=== PATIENT | male | born 1995 | race Two or more races ===

== ENCOUNTER 2019-01-14 23:13 | Emergency (ER) | payer SELFPAY ==
--- NOTE | 2019-01-14 23:21 | ER Document Report ---
ED General - General Stated Complaint: POSSIBLE OVERDOSE Time Seen by Provider: 01/14/19 23:20 Primary Care Provider: LEAH SLATER DO [NO LOCAL MD] - Follow up in 3-5 days (primary care. ) Notes: Patient is a 23-year-old male with multi-substance abuse that presents to the emergency department for chief complaint of hypotension. Patient states that he was over at the crisis treatment center, and to try to get treatment for multi-substance abuse including heroin, cocaine and marijuana, he apparently used heroin little over an hour ago, through IV injection, and then went over to the crisis center, he states he thinks he is too high, and his blood pressure was lower, and he was rather drowsy over there so they transferred him over here to get medical clearance. At this time he is alert and oriented and answering questions appropriately. He thinks he just needs to wait, and things will get better. He denies having any pain, shortness of breath, nausea, vomiting or diarrhea recently. No recent fevers or illnesses. Past Medical History: Hepatitis C, multi-substance abuse disorder Past Surgical History: Denies surgical history Social History: Admits to heroin use, occasional cocaine use, marijuana use, and occasional benzodiazepine abuse. Family History: Reviewed and noncontributory for presenting illness Allergies: Reviewed, see documented allergy list. REVIEW OF SYSTEMS: Other than noted above, the 12 point review of systems was reviewed with the patient and were negative, all pertinent findings are included in the HPI. PHYSICAL EXAMINATION: Vital signs reviewed, nursing noted reviewed. GENERAL: Patient is somnolent, but answering questions appropriately and easily arousable to verbal stimuli HEAD: Atraumatic, normocephalic. EYES: Eyes appear normal, extraocular movements intact, sclera anicteric, co njunctiva are normal. ENT: nares patent, oropharynx clear without exudates. Moist mucous membranes. NECK: Normal range of motion, supple without lymphadenopathy LUNGS: Breath sounds clear to auscultation bilaterally and equal. No wheezes rales or rhonchi. HEART: Regular rate and rhythm without murmurs ABDOMEN: Soft, nontender, normoactive bowel sounds. No rebound, guarding, or rigidity. No masses appreciated. EXTREMITIES: Nontender, good range of motion, no pitting or edema. NEUROLOGICAL: No focal neurological deficits. Moves all extremities spontaneously Motor and sensory grossly intact on exam. PSYCH: Normal mood, normal affect. SKIN: Warm, Dry, normal turgor, no rashes or lesions noted on exposed skin TRAVEL OUTSIDE OF THE [place] IN LAST 30 DAYS: No - Related Data Allergies/Adverse Reactions: No Known Allergies Allergy (Unverified 09/13/18 15:43) Past Medical History - Social History Smoking Status: Current Every Day Smoker Family History: Reviewed & Not Pertinent Renal/ Medical History: Denies: Hx Peritoneal Dialysis Physical Exam - Vital signs Vitals: Temp Pulse Resp BP Pulse Ox 98.0 F 88 14 85/47 L 100 01/14/19 23:17 01/14/19 23:17 01/14/19 23:17 01/14/19 23:17 01/14/19 23:17 Course - Re-evaluation Re-evalutation: Patient seen and examined vital signs reviewed. Patient was evaluated and treated as appropriate for the patient's presenting symptoms and complaint, with consideration of any critical or life threatening conditions that may be associated with their obtained history and exam as noted above. Patient was monitored for several hours in the emergency department, he is easily arousable, his blood pressure was borderline low, we did obtain orthostatics, and he only had a slight drop in his systolic pressure, with sitting up, but was not symptomatic, he was easily arousable as noted, and I fee l that he can be discharged to the treatment center, for his multi-substance abuse, do not feel any need for blood work at this time, patient was not tachycardic, diaphoretic, and otherwise appeared well. The patient was re-evaluated and was stable Evaluation was most consistent with orthostasis, multi-substance abuse including heroin. Plan of care was discussed with the patient at this point, after careful consideration I feel that that patient can be discharged from the emergency department, the patient was educated treatments and reasons to return to the emergency department based on their presumed diagnosis as noted above, they were advised to followup with a primary care physician in 2-3 days. Patient was agreeable to plan of care. *Note is created using voice recognition software and may contain spelling, syntax or grammatical errors. - Vital Signs Vital signs: Temp Pulse Resp BP Pulse Ox 98.0 F 88 14 96/61 L 100 01/14/19 23:17 01/14/19 23:17 01/14/19 23:17 01/15/19 01:37 01/14/19 23:17 Discharge - Discharge Clinical Impression: Multiple substance abuse Hypotension Qualifiers: Hypotension type: unspecified hypotension type Qualified Code(s): I95.9 - Hypotension, unspecified Condition: Stable Disposition: HOME, SELF-CARE Instructions: Orthostatic Hypotension ([facility]) Additional Instructions: Please follow-up with the [facility], avoid any further use of illegal drugs, only take medications that are prescribed to you and as directed. Drink plenty of fluids. If you have any further concerns, do not hesitate to return to the emergency department. Referrals: LEAH SLATER DO [NO LOCAL MD] - Follow up in 3-5 days (primary care. )
[2019-01-15 02:47] VITALS: BP 86/60
== END 2019-01-15 02:47 | disposition home or self-care (01) ==
LOC: ER 23:13
DX: I95.9 Hypotension, unspecified (principal); F19.10 Other psychoactive substance abuse, uncomplicated; Z86.19 Personal history of other infectious and parasitic diseases
CPT/HCPCS: 99284

== ENCOUNTER 2019-01-15 04:58 | Emergency (ER) | payer SELFPAY ==
[2019-01-15] MEDS ORDERED: NORMAL SALINE 1000 ML 1,000 ML IV ONE ×2 (05:03→05:04)
--- NOTE | 2019-01-15 05:08 | ER Document Report ---
ED General - General Stated Complaint: MEDICAL EVALUATION Time Seen by Provider: 01/15/19 05:03 Notes: Patient is a 23-year-old male with history of multi-substance abuse that presents to the emergency department for chief complaint of heroin withdrawal. Patient was seen in the emergency department earlier this evening, for heroin intoxication, he was at a treatment facility, and they were uncomfortable with his current intoxicated states that they sent him over here, he was monitored, and cleared from my standpoint, and discharged to the facility, according to the patient, the stated he was not in withdrawal, and did not feel comfortable treating him. I did speak with the psychiatrist over there, they stated he was still orthostatic and they were uncomfortable having him over there without any true medical staff. The patient at this time, sitting upright, he is alert and oriented, answering questions appropriately, has no complaints at this time, states that he is not sure why he was sent back over here. He does not feel lightheaded, and has no complaints. Past Medical History: Multi-substance abuse, hepatitis C Past Surgical History: Denies surgical history Social History: Admits to smoking cigarettes, and denies alcohol use, but admits to occasional cocaine use, marijuana use, heroin use, and occasional benzodiazepine abuse. Family History: Reviewed and noncontributory for presenting illness Allergies: Reviewed, see documented allergy list. REVIEW OF SYSTEMS: Other than noted above, the 12 point review of systems was reviewed with the patient and were negative, all pertinent findings are included in the HPI. PHYSICAL EXAMINATION: Vital signs reviewed, nursing noted reviewed. GENERAL: Well-appearing, well-nourished and in no acute distress. HEAD: Atraumatic, normocephalic. EYES: Eyes appear normal, extraocular movements intact, sclera anicteric, conjunctiva are normal. ENT: nares patent, oropharynx clear without exudates. Moist mucous membranes. NECK: Normal range of motion, supple without lymphadenopathy LUNGS: Breath sounds clear to auscultation bilaterally and equal. No wheezes rales or rhonchi. HEART: Regular rate and rhythm without murmurs ABDOMEN: Soft, nontender, normoactive bowel sounds. No rebound, guarding, or rigidity. No masses appreciated. EXTREMITIES: Nontender, good range of motion, no pitting or edema. NEUROLOGICAL: No focal neurological deficits. Moves all extremities spontaneously Motor and sensory grossly intact on exam. PSYCH: Normal mood, normal affect. SKIN: Warm, Dry, normal turgor, no rashes or lesions noted on exposed skin TRAVEL OUTSIDE OF THE [place] IN LAST 30 DAYS: No - Related Data Allergies/Adverse Reactions: No Known Allergies Allergy (Unverified 09/13/18 15:43) Past Medical History - Social History Smoking Status: Current Every Day Smoker Family History: Reviewed & Not Pertinent Renal/ Medical History: Denies: Hx Peritoneal Dialysis Physical Exam - Vital signs Vitals: Pulse Ox 100 01/15/19 05:05 Course - Re-evaluation Re-evalutation: Patient seen and examined, vital signs reviewed, patient is hemodynamically stable, he appears well, we will give him IV fluids, due to concerns from the treatment center, I do think this patient's try to reach out to get help, and he is having difficulty getting help at that particular treatment center, due to him having a borderline blood pressure, but that is apparently normal for him according to the patient, will give him IV fluids, recheck vital signs, and if he is stable, I will clear him medically, to be discharged from the emergency department, and he will be free to pursue treatment at that facility or elsewhere. He does not appear intoxicated to me at this time, and medically appears well, I do not think any further work-up is needed or necessary at this time. - Vital Signs Vital signs: Temp Pulse Resp BP Pulse Ox 104/66 100 01/15/19 05:06 01/15/19 05:06 Discharge - Discharge Clinical Impression: Multiple substance abuse Condition: Stable Disposition: HOME, SELF-CARE Instructions: Narcotic Abuse ([facility]) Additional Instructions: Please follow-up with the treatment facility, also [facility], who also can help with addiction medicine, if you do not want to return to the treatment center that you are at this evening. Referrals: [facility] [Provider Group] - Follow up tomorrow
[2019-01-15 07:57] VITALS: BP 104/60
== END 2019-01-15 07:49 | disposition home or self-care (01) ==
LOC: ER 04:58
DX: F19.10 Other psychoactive substance abuse, uncomplicated (principal); F11.129 Opioid abuse with intoxication, unspecified; F17.210 Nicotine dependence, cigarettes, uncomplicated
CPT/HCPCS: 99283; 96360; J7030